=== PATIENT | male | born 1950 | race Caucasian/White ===

== ENCOUNTER 2018-08-10 10:05 | Observation (INO) | payer MEDICARE ==
[2018-08-09 10:14] LABS: BASOPHILS % (AUTO) 0.3 % (0-1); EOSINOPHILS # (AUTO) 0.2 X10'3 (0-0.9); EOSINOPHILS % (AUTO) 3.1 % (0-6); HEMATOCRIT 33.5 % (42.0-52.0); HEMOGLOBIN 11.1 g/dl (14.0-17.9); LYMPHOCYTES # (AUTO) 1.3 X10'3 (1.1-4.8); LYMPHOCYTES % (AUTO) 20.4 % (21-51); MEAN CORPUSCULAR HEMOGLOBIN 27.3 PG (27.0-31.0); MEAN CORPUSCULAR HGB CONC 33.3 % (33.0-36.5); MEAN PLATELET VOLUME 8.6 FL (7.4-10.4); MONOCYTES # (AUTO) 0.5 X10'3 (0-0.9); MONOCYTES % (AUTO) 7.4 % (2-12); NEUTROPHILS # (AUTO) 4.2 X10'3 (1.8-7.7); NEUTROPHILS % (AUTO) 68.8 % (42-75); PLATELET COUNT 203 X10'3 (140-440); RED BLOOD COUNT 4.08 X10'6 (4.70-6.10); RED CELL DISTRIBUTION WIDTH 16.4 % (11.5-14.5); WHITE BLOOD COUNT 6.2 X10'3 (4.5-11.0)
[2018-08-09 10:26] LABS: ALBUMIN 3.3 G/DL (3.4-5.0); ANION GAP 10 (8-16); BLOOD UREA NITROGEN 19 MG/DL (7-18); BUN/CREATININE RATIO 17.3 (5.4-32.0); CALCIUM 8.9 MG/DL (8.5-10.1); CHLORIDE 108 MMOL/L (99-107); GLUCOSE 87 MG/DL (70-104); POTASSIUM 3.8 MMOL/L (3.5-5.1); SODIUM 143 MMOL/L (135-145); TOTAL CARBON DIOXIDE 24.8 MMOL/L (24-32); eGFR 67 ML/MIN
[2018-08-09 10:37] LABS: INR 1.1 INR; PARTIAL THROMBOPLASTIN TIME 27 SECONDS (22-32); PROTHROMBIN TIME 11.4 SECONDS (9.0-12.0)
[2018-08-10] VITALS (13 sets, daily range): BP systolic 143–174; BP diastolic 68–94
[~2018-08-10] VITALS: Ht 152.4 cm; Wt 130.8 kg
[~2018-08-10 10:05] MED LIST: AMLO2.5T2 PO; ASPI-1264 PO; BISO5TAB PO; CALC600T12 PO; FOLI0.4T2 PO; GLIM1TAB46 PO; HYDR25TA4 PO; LISI40TA4 PO; LOSA50TA3 PO; METF500T7 PO; OMEG-182 PO; PIOG15TA8 PO; SIMV20TA5 PO; TERA2CAP4 PO; TRAM50TA2 PO; VITA400C21 PO
[2018-08-10] MEDS ORDERED: diphenhydrAMINE 25mg capsule PO PRN (10:35)
[2018-08-10] MEDS ORDERED: LORazepam 0.5 MG tablet PO PRN (10:35)
[2018-08-10] MEDS ORDERED: ATOR80TA PO (11:10)
[2018-08-10] MEDS ORDERED: AMLO2.5T2 PO (11:10)
[2018-08-10] MEDS ORDERED: ASPI-1265 PO (11:10)
[2018-08-10] MEDS ORDERED: GLUC-150 PO (11:10)
[2018-08-10] MEDS ORDERED: ASCO500C15 PO (11:10)
[2018-08-10] MEDS ORDERED: CLOP75TA35 PO (11:10)
[2018-08-10] MEDS: normal saline 1000ml 1,000 ML IV SCH ×2 (11:43→20:35)
[2018-08-10] MEDS ORDERED: LIDOcaine 1% 30ml preserv. free vial ONE (12:58)
[2018-08-10] MEDS ORDERED: iohexol 350MG/ML 100ml bottle IV ONE ×3 (12:58→14:14)
[2018-08-10] MEDS ORDERED: midazolam 2 mg/2 ml injection ONE (13:26)
[2018-08-10] MEDS ORDERED: fentaNYL/PF 50MCG/1 ML 2ML syringe ONE (13:26)
[2018-08-10] MEDS ORDERED: heparin 1,000unit/ml 10ml vial 10 ML ONE ×2 (13:49→14:23)
[2018-08-10] MEDS ORDERED: clopidogrel 300mg tablet ONE (14:33)
[2018-08-10] MEDS ORDERED: morphine 2 MG/ML inj. syringe IV PRN ×2 (15:20→15:50)
[2018-08-10] MEDS ORDERED: proCHLORperazine 10 MG/2 ml inj IV PRN (15:40)
[2018-08-10] MEDS ORDERED: HYDROcodone/acetaminophen 5mg/325mg tablet PO PRN (15:40)
[2018-08-10] MEDS ORDERED: OXAZEpam 15mg capsule PO PRN (15:40)
[2018-08-10] MEDS ORDERED: nitroGLYCERIN 0.4mg SUBLingual tab SL PRN (15:40)
[2018-08-10] MEDS ORDERED: HYDROcodone/acetaminophen 10/325mg tab PO PRN (15:40)
[2018-08-10] MEDS ORDERED: ondansetron/PF 4mg/2ml inj IV PRN (15:40)
[2018-08-10] MEDS ORDERED: atorvastatin 20mg tablet PO SCH (21:00)
[2018-08-10] MEDS ORDERED: terazosin 5mg capsule PO SCH (21:00)
[2018-08-11 06:00] VITALS: BP 160/65
[2018-08-11] MEDS ORDERED: METF500T7 PO (06:18)
[2018-08-11] MEDS: normal saline 1000ml 1,000 ML IV SCH (06:35)
[2018-08-11] MEDS ORDERED: FISH OIL PO SCH (08:00)
[2018-08-11] MEDS ORDERED: amLODIPine 5mg tablet PO SCH (08:00)
[2018-08-11] MEDS ORDERED: losartan 50mg tablet PO SCH (08:00)
[2018-08-11] MEDS ORDERED: glimepiride 1 MG tablet PO SCH (08:00)
[2018-08-11] MEDS ORDERED: OMEGA PO SCH (08:00)
[2018-08-11] MEDS ORDERED: pioglitazone 15mg tablet PO SCH (08:00)
[2018-08-11] MEDS ORDERED: aspirin 81mg tab.chew PO SCH (08:00)
[2018-08-11] MEDS ORDERED: ascorbic acid 500mg tablet PO SCH (08:00)
[2018-08-11] MEDS ORDERED: BOSWELLIA SERRA PO SCH (08:00)
[2018-08-11] MEDS ORDERED: atenolol 50mg tablet PO SCH (08:00)
[2018-08-11] MEDS ORDERED: vitamin E 400 unit capsule PO SCH (08:00)
[2018-08-11] MEDS ORDERED: calcium carbonate 500mg tablet PO SCH (08:00)
[2018-08-11] MEDS ORDERED: EPA PO SCH (08:00)
[2018-08-11] MEDS ORDERED: clopidogrel 75mg tablet PO SCH (08:00)
[2018-08-11] MEDS ORDERED: DHA PO SCH (08:00)
[2018-08-11] MEDS ORDERED: GLUCOSAMINE PO SCH (08:00)
[2018-08-11] MEDS ORDERED: folic acid 0.4mg tablet PO SCH (08:00)
[2018-08-11] MEDS ORDERED: D3 PO SCH (08:00)
[2018-08-11] MEDS ORDERED: pioglitazone 45mg tablet PO SCH (09:42)
[2018-08-12] MEDS ORDERED: metFORMIN 500mg tablet PO SCH (20:00)
== END 2018-08-11 11:25 | disposition home or self-care (01) ==
LOC: SSTAY O 10:05 → PCU 3S 18:27
PROVIDERS: ADMIT Internal Medicine Interventional Cardiology; ATTEND Internal Medicine Interventional Cardiology
DX: I25.708 Atherosclerosis of coronary artery bypass graft(s), unspecified, with other forms of angina pectoris (principal); E11.9 Type 2 diabetes mellitus without complications; E78.5 Hyperlipidemia, unspecified; I25.2 Old myocardial infarction; I10 Essential (primary) hypertension; I45.19 Other right bundle-branch block; I35.0 Nonrheumatic aortic (valve) stenosis; I21.4 Non-ST elevation (NSTEMI) myocardial infarction; G47.10 Hypersomnia, unspecified; R94.31 Abnormal electrocardiogram [ECG] [EKG]; E66.09 Other obesity due to excess calories; Z79.84 Long term (current) use of oral hypoglycemic drugs; Z79.82 Long term (current) use of aspirin; Z95.1 Presence of aortocoronary bypass graft
CPT/HCPCS: 36415; 80048; 82948; 83036; 85025; 85610; 85730; 87070; 93005; 93455; 96374; 96376; A6257; A6449; C1725; C1760; C1769; C1874; C1887; C9600; C9601; G0378; J1644; J2250; J2270; J3010; J3490; J7030; Q0163; Q9967; 99152; 99153; A4620

== ENCOUNTER 2023-12-09 12:08 | Inpatient (IN) | payer MEDICARE ==
[~2023-12-09] VITALS: Ht 177.8 cm; Wt 90.0 kg
[~2023-12-09 12:08] MED LIST changes: +AMA1T PO; +ASCO500C18 PO; -ASPI-1264 PO; +ASPI-1265 PO; +ATOR80TA PO; -CALC600T12 PO; +CALC600T35 PO; +CLOP75TA34 PO; -FOLI0.4T2 PO; +FOLI0.4T6 PO; +FURO-149 PO; -GLIM1TAB46 PO; +GLUC-150 PO; -HYDR25TA4 PO; -LISI40TA4 PO; +LOSA-416 PO; -LOSA50TA3 PO; +METF-900 PO; -METF500T7 PO; +POTA-207 PO; -SIMV20TA5 PO; -TRAM50TA2 PO
[2023-12-09 12:40] LABS: BASOPHILS % (AUTO) 0.5 % (0-1); EOSINOPHILS # (AUTO) 0.1 X10'3 (0-0.9); HEMOGLOBIN 12.2 g/dl (14.0-17.9); LYMPHOCYTES # (AUTO) 1.9 X10'3 (1.1-4.8); LYMPHOCYTES % (AUTO) 26.2 % (21-51); MEAN CORPUSCULAR HEMOGLOBIN 29.3 PG (27.0-31.0); WHITE BLOOD COUNT 7.2 X10'3 (4.5-11.0)
[2023-12-09 12:42] LABS: EOSINOPHILS % (AUTO) 1.2 % (0-6); HEMATOCRIT 36.7 % (42.0-52.0); MEAN CORPUSCULAR HGB CONC 33.2 g/dL (33.0-36.5); MEAN CORPUSCULAR VOLUME 88.1 FL (78-98); MONOCYTES # (AUTO) 0.4 X10'3 (0-0.9); MONOCYTES % (AUTO) 5.8 % (2-12); NEUTROPHILS # (AUTO) 4.8 X10'3 (1.8-7.7); NEUTROPHILS % (AUTO) 66.3 % (42-75); PLATELET COUNT 183 X10'3 (140-440); RED BLOOD COUNT 4.17 X10'6 (4.70-6.10)
[2023-12-09 12:51] LABS: ALKALINE PHOSPHATASE 67 IU/L (46-116); ANION GAP 10 (8-16); ASPARTATE AMINO TRANSFERASE 12 U/L (10-37); BILIRUBIN,TOTAL 0.7 MG/DL (0.1-1.0); BLOOD UREA NITROGEN 17 MG/DL (7-18); BUN/CREATININE RATIO 17.7 (10.0-20.0); CALCIUM 8.5 MG/DL (8.5-10.1); CHLORIDE 106 MMOL/L (99-107); CREATININE 0.96 MG/DL (0.60-1.10); GLUCOSE 249 MG/DL (70-104); POTASSIUM 3.3 MMOL/L (3.5-5.1); SODIUM 143 MMOL/L (135-145); TOTAL CARBON DIOXIDE 27.4 MMOL/L (24-32); TOTAL PROTEIN 5.9 G/DL (6.4-8.2); eGFR 77 ML/MIN
[2023-12-09 12:54] LABS: ALANINE AMINOTRANSFERASE < 6 U/L (12-78)
[2023-12-09 13:02] LABS: PRO BRAIN NATRIURETIC PEPTIDE 2050 PG/ML (0-125)
[2023-12-09 13:48] LABS: BURR CELLS FEW; PLATELET ESTIMATE NORMAL
[2023-12-09 13:49] LABS: ELLIPTOCYTES 1+
[2023-12-09] MEDS ORDERED: aspirin 81mg tab.chew PO ONE (17:45)
[2023-12-09] MEDS ORDERED: nitroGLYCERIN 0.4mg/hour patch TD ONE (17:45)
[2023-12-09] MEDS ORDERED: mag hydrox/Alum hydrox/simeth 30ml oral suspension PO PRN (18:00)
[2023-12-09] MEDS ORDERED: magnesium hydroxide 30ml (MOM) UD suspension PO PRN (18:00)
[2023-12-09] MEDS ORDERED: magnesium 4gm in 100ml NS 100 ML IV PRN (18:00)
[2023-12-09] MEDS ORDERED: potassium Cl 20 mEq SR tablet PO PRN (18:00)
[2023-12-09] MEDS ORDERED: morphine 2 MG/ML inj. syringe IV PRN (18:00)
[2023-12-09] MEDS ORDERED: ondansetron/PF 4mg/2ml inj IV PRN (18:00)
[2023-12-09] MEDS ORDERED: potassium Cl 40MEQ/1/2NS 520ml 520 ML IV PRN (18:00)
[2023-12-09] MEDS ORDERED: HYDROcodone/acetaminophen 5mg/325mg tablet PO PRN (18:00)
[2023-12-09] MEDS ORDERED: acetaminophen 325mg tablet PO PRN (18:00)
[2023-12-09] MEDS ORDERED: magnesium Cl slow-release 64mg tablet PO PRN (18:00)
[2023-12-09] MEDS ORDERED: HYDROcodone/acetaminophen 10/325mg tab PO PRN (18:00)
[2023-12-09] MEDS ORDERED: magnesium 2GM in 50ml NS 50 ML IV PRN (18:00)
[2023-12-09 18:59] LABS: APTT 29 SECONDS (22-32); INR 1.2 INR; PROTHROMBIN TIME 12.3 SECONDS (9.0-12.0)
[2023-12-09] MEDS: docusate sod 100mg capsule PO SCH (19:34)
[2023-12-09] MEDS ORDERED: hydrALAZINE 20mg/ml inj. IV PRN (19:45)
[2023-12-09] MEDS: K and/or MAG REPLACEMENT MC SCH (20:00)
[2023-12-09] MEDS: potassium Cl 20 mEq SR tablet PO PRN (20:28)
[2023-12-09 23:30] VITALS: BP 136/58; PULSE 69; RESP 12; TEMP 98.3; O2SAT 98
[2023-12-10] VITALS (7 sets, daily range): BP systolic 150–178; BP diastolic 43–83; PULSE 56–67; RESP 13–19; TEMP 96.9–98.6; O2SAT 94–98
[2023-12-10] MEDS: potassium Cl 20 mEq SR tablet PO PRN (02:51)
[2023-12-10] MEDS: docusate sod 100mg capsule PO SCH ×3 (08:00→20:00)
[2023-12-10] MEDS: K and/or MAG REPLACEMENT MC SCH ×2 (08:00→19:45)
[2023-12-10] MEDS: enoxaparin 40mg/0.4ml syringe SUBCUT SCH (08:00)
[2023-12-10 08:44] LABS: BASOPHILS % (AUTO) 0.5 % (0-1); EOSINOPHILS # (AUTO) 0.1 X10'3 (0-0.9); EOSINOPHILS % (AUTO) 1.7 % (0-6); HEMATOCRIT 34.4 % (42.0-52.0); HEMOGLOBIN 11.9 g/dl (14.0-17.9); LYMPHOCYTES # (AUTO) 2.6 X10'3 (1.1-4.8); LYMPHOCYTES % (AUTO) 31.5 % (21-51); MEAN CORPUSCULAR HGB CONC 34.5 g/dL (33.0-36.5); MEAN PLATELET VOLUME 9.3 FL (7.4-10.4); MONOCYTES # (AUTO) 0.7 X10'3 (0-0.9); MONOCYTES % (AUTO) 8.9 % (2-12); NEUTROPHILS # (AUTO) 4.8 X10'3 (1.8-7.7); NEUTROPHILS % (AUTO) 57.4 % (42-75); PLATELET COUNT 174 X10'3 (140-440); RED BLOOD COUNT 3.96 X10'6 (4.70-6.10); RED CELL DISTRIBUTION WIDTH 14.4 % (11.5-14.5); WHITE BLOOD COUNT 8.4 X10'3 (4.5-11.0)
[2023-12-10] MEDS ORDERED: HYDR12.55 PO (09:02)
[2023-12-10] MEDS ORDERED: CARB1TAB37 PO (09:02)
[2023-12-10] MEDS ORDERED: FINA5TAB11 PO (09:02)
[2023-12-10] MEDS ORDERED: CARV25TA56 PO (09:02)
[2023-12-10] MEDS ORDERED: VALS320T17 PO (09:02)
[2023-12-10] MEDS ORDERED: DONE-55 PO (09:05)
[2023-12-10] MEDS ORDERED: ERGO400C PO (09:05)
[2023-12-10 09:06] LABS: ALANINE AMINOTRANSFERASE 10 U/L (12-78); ALBUMIN 2.7 G/DL (3.4-5.0); ALKALINE PHOSPHATASE 55 IU/L (46-116); ANION GAP 6 (8-16); ASPARTATE AMINO TRANSFERASE 12 U/L (10-37); BILIRUBIN,TOTAL 0.7 MG/DL (0.1-1.0); BLOOD UREA NITROGEN 15 MG/DL (7-18); BUN/CREATININE RATIO 20.3 (10.0-20.0); CALCIUM 7.9 MG/DL (8.5-10.1); CHLORIDE 109 MMOL/L (99-107); CREATININE 0.74 MG/DL (0.60-1.10); GLUCOSE 103 MG/DL (70-104); MAGNESIUM 2.1 MG/DL (1.5-2.4); POTASSIUM 3.5 MMOL/L (3.5-5.1); SODIUM 143 MMOL/L (135-145); TOTAL CARBON DIOXIDE 27.7 MMOL/L (24-32); TOTAL PROTEIN 5.4 G/DL (6.4-8.2); eCRCL 95 ML/MIN; eGFR > 90 ML/MIN
[2023-12-10 10:18] LABS: SMUDGE CELLS 1+; TOTAL CELLS COUNTED 100
[2023-12-10 10:19] LABS: ACANTHOCYTES FEW; BURR CELLS FEW; ELLIPTOCYTES FEW; PLATELET ESTIMATE NORMAL
[2023-12-10] MEDS: losartan 50mg tablet PO SCH (15:45)
[2023-12-10] MEDS: aspirin 81mg tab.chew PO SCH (15:46)
[2023-12-10] MEDS: METFORMIN HCL 500 MG PO SCH (20:00)
[2023-12-10] MEDS: carbidoba-levodopa 25-100mg tablet PO SCH (20:51)
[2023-12-10] MEDS: carVEDilol 12.5mg tablet PO SCH (20:51)
[2023-12-10] MEDS ORDERED: ERGOCALCIFEROL PO SCH (21:00)
[2023-12-10] MEDS ORDERED: donepezil 5mg tablet PO SCH (21:00)
[2023-12-10] MEDS ORDERED: atorvastatin 10mg tablet PO SCH (21:00)
[2023-12-10] MEDS ORDERED: terazosin 5mg capsule PO SCH (21:00)
[2023-12-11 02:00] VITALS: BP_SYST 111; BP_SYST 154; BP_DIAS 65; BP_DIAS 67; PULSE 56; RESP 16; TEMP 97.8; O2SAT 96
[2023-12-11 06:00] VITALS: BP 159/79; PULSE 54; RESP 16; TEMP 98.2; O2SAT 96
[2023-12-11 06:56] LABS: BASOPHILS % (AUTO) 0.7 % (0-1); EOSINOPHILS # (AUTO) 0.2 X10'3 (0-0.9); EOSINOPHILS % (AUTO) 2.3 % (0-6); HEMATOCRIT 33.9 % (42.0-52.0); HEMOGLOBIN 11.7 g/dl (14.0-17.9); LYMPHOCYTES # (AUTO) 2.3 X10'3 (1.1-4.8); LYMPHOCYTES % (AUTO) 33.5 % (21-51); MEAN CORPUSCULAR HEMOGLOBIN 29.8 PG (27.0-31.0); MEAN CORPUSCULAR HGB CONC 34.4 g/dL (33.0-36.5); MEAN CORPUSCULAR VOLUME 86.4 FL (78-98); MEAN PLATELET VOLUME 8.6 FL (7.4-10.4); MONOCYTES # (AUTO) 0.5 X10'3 (0-0.9); MONOCYTES % (AUTO) 7.4 % (2-12); NEUTROPHILS # (AUTO) 3.8 X10'3 (1.8-7.7); NEUTROPHILS % (AUTO) 56.1 % (42-75); PLATELET COUNT 156 X10'3 (140-440); RED BLOOD COUNT 3.92 X10'6 (4.70-6.10); RED CELL DISTRIBUTION WIDTH 14.4 % (11.5-14.5); WHITE BLOOD COUNT 6.8 X10'3 (4.5-11.0)
[2023-12-11 07:15] LABS: ALBUMIN 2.6 G/DL (3.4-5.0); ALKALINE PHOSPHATASE 53 IU/L (46-116); ANION GAP 6 (8-16); ASPARTATE AMINO TRANSFERASE 14 U/L (10-37); BILIRUBIN,TOTAL 0.9 MG/DL (0.1-1.0); BLOOD UREA NITROGEN 17 MG/DL (7-18); BUN/CREATININE RATIO 20.5 (10.0-20.0); CALCIUM 8.3 MG/DL (8.5-10.1); CHLORIDE 108 MMOL/L (99-107); CREATININE 0.83 MG/DL (0.60-1.10); GLUCOSE 100 MG/DL (70-104); POTASSIUM 3.3 MMOL/L (3.5-5.1); SODIUM 143 MMOL/L (135-145); TOTAL CARBON DIOXIDE 28.8 MMOL/L (24-32); TOTAL PROTEIN 5.2 G/DL (6.4-8.2); eCRCL 84 ML/MIN; eGFR > 90 ML/MIN
[2023-12-11 07:24] LABS: ALANINE AMINOTRANSFERASE < 6 U/L (12-78)
[2023-12-11 08:00] VITALS: RESP 16; O2SAT 96
[2023-12-11] MEDS ORDERED: losartan 50mg tablet PO SCH (08:00)
[2023-12-11] MEDS ORDERED: D3 PO SCH (08:00)
[2023-12-11] MEDS ORDERED: folic acid 0.4mg tablet PO SCH (08:00)
[2023-12-11] MEDS ORDERED: OMEGA-3/DHA/EPA/FISH OIL 1 EACH CAPSULE.DR PO SCH (08:00)
[2023-12-11] MEDS: enoxaparin 40mg/0.4ml syringe SUBCUT SCH (08:00)
[2023-12-11] MEDS ORDERED: HYDROchlorothiazide 12.5mg capsule PO SCH (08:00)
[2023-12-11] MEDS ORDERED: ascorbic acid 500mg tablet PO SCH (08:00)
[2023-12-11] MEDS ORDERED: BOSWELLIA SERRA PO SCH (08:00)
[2023-12-11] MEDS ORDERED: vitamin E 400 unit capsule PO SCH (08:00)
[2023-12-11] MEDS: METFORMIN HCL 500 MG PO SCH (08:00)
[2023-12-11] MEDS ORDERED: GLUCOSAMINE PO SCH (08:00)
[2023-12-11] MEDS ORDERED: finasteride 5mg tablet PO SCH (08:00)
[2023-12-11] MEDS: aspirin 81mg tab.chew PO SCH (08:02)
[2023-12-11] MEDS: docusate sod 100mg capsule PO SCH (08:02)
[2023-12-11] MEDS: losartan 50mg tablet PO SCH (08:04)
[2023-12-11] MEDS: potassium Cl 20 mEq SR tablet PO PRN (08:06)
[2023-12-11] MEDS: K and/or MAG REPLACEMENT MC SCH (08:09)
[2023-12-11 09:52] VITALS: BP 168/78; PULSE 63
[2023-12-11] MEDS: carVEDilol 12.5mg tablet PO SCH (10:13)
[2023-12-11] MEDS: carbidoba-levodopa 25-100mg tablet PO SCH (10:27)
[2023-12-11] MEDS ORDERED: POTA-207 PO (11:32)
== END 2023-12-11 12:49 | disposition home or self-care (01) | DRG 307 ==
LOC: ER 12:09 → ED HOLD 18:01 → PCU 3S 23:25
PROVIDERS: ADMIT Internal Medicine; ATTEND Internal Medicine
DX: I35.0 Nonrheumatic aortic (valve) stenosis (principal); I25.110 Atherosclerotic heart disease of native coronary artery with unstable angina pectoris; R00.1 Bradycardia, unspecified; G31.83 Neurocognitive disorder with Lewy bodies; G20.A1 Parkinson's disease without dyskinesia, without mention of fluctuations; F02.80 Dementia in other diseases classified elsewhere, unspecified severity, without behavioral disturbance, psychotic disturbance, mood disturbance, and anxiety; I10 Essential (primary) hypertension; E11.9 Type 2 diabetes mellitus without complications; E78.00 Pure hypercholesterolemia, unspecified; E66.01 Morbid (severe) obesity due to excess calories; G89.29 Other chronic pain; E87.6 Hypokalemia; N40.0 Benign prostatic hyperplasia without lower urinary tract symptoms; Z95.5 Presence of coronary angioplasty implant and graft; Z95.1 Presence of aortocoronary bypass graft; Z79.899 Other long term (current) drug therapy; I25.2 Old myocardial infarction; Z85.820 Personal history of malignant melanoma of skin; Z83.3 Family history of diabetes mellitus; Z82.49 Family history of ischemic heart disease and other diseases of the circulatory system; Z68.28 Body mass index [BMI] 28.0-28.9, adult; Z79.82 Long term (current) use of aspirin
CPT/HCPCS: 36415; 71045; 80053; 82948; 83735; 83880; 84484; 85007; 85008; 85025; 85610; 85730; 87081; 93005; 93306; 99285; G0378

== ENCOUNTER 2024-01-05 10:52 | Day surgery (SDC) | payer MEDICARE ==
[2024-01-01 09:18] LABS: EOSINOPHILS # (AUTO) 0.2 X10'3 (0-0.9); HEMOGLOBIN 13.7 g/dl (14.0-17.9); LYMPHOCYTES % (AUTO) 38.1 % (21-51); MONOCYTES # (AUTO) 0.4 X10'3 (0-0.9)
[2024-01-01 09:20] LABS: BASOPHILS % (AUTO) 0.4 % (0-1); HEMATOCRIT 41.2 % (42.0-52.0); MEAN CORPUSCULAR HEMOGLOBIN 29.3 PG (27.0-31.0); MEAN CORPUSCULAR HGB CONC 33.3 g/dL (33.0-36.5); MEAN CORPUSCULAR VOLUME 87.9 FL (78-98); MEAN PLATELET VOLUME 8.6 FL (7.4-10.4); NEUTROPHILS # (AUTO) 4.3 X10'3 (1.8-7.7); NEUTROPHILS % (AUTO) 54.5 % (42-75); PLATELET COUNT 208 X10'3 (140-440); RED BLOOD COUNT 4.68 X10'6 (4.70-6.10); RED CELL DISTRIBUTION WIDTH 15.1 % (11.5-14.5)
[2024-01-01 10:11] LABS: ALBUMIN 3.4 G/DL (3.4-5.0); ANION GAP 9 (8-16); BLOOD UREA NITROGEN 17 MG/DL (7-18); BUN/CREATININE RATIO 21.3 (10.0-20.0); CALCIUM 9.1 MG/DL (8.5-10.1); CHLORIDE 110 MMOL/L (99-107); CHOL/HDL RATIO 2.5 (0.00-4.99); CHOLESTEROL 125 MG/DL (0-200); GLUCOSE 130 MG/DL (70-104); HDL CHOLESTEROL 50 MG/DL (35-60); LDL CHOLESTEROL 60 MG/DL (50-100); POTASSIUM 3.8 MMOL/L (3.5-5.1); SODIUM 146 MMOL/L (135-145); TRIGLYCERIDES 57 MG/DL (20-135); eGFR > 90 ML/MIN
[2024-01-01 10:12] LABS: APTT 25 SECONDS (22-32); INR 1.1 INR; PROTHROMBIN TIME 11.9 SECONDS (9.0-12.0)
[~2024-01-05] VITALS: Ht 177.8 cm; Wt 89.3 kg
[2024-01-05] VITALS (8 sets, daily range): BP systolic 121–140; BP diastolic 48–75; PULSE 51–65; RESP 16; TEMP 97.6; O2SAT 93–98
[~2024-01-05 10:52] MED LIST changes: -AMLO2.5T2 PO; -BISO5TAB PO; +CARB1TAB37 PO; +CARV25TA56 PO; -CLOP75TA34 PO; +DONE-55 PO; +ERGO400C PO; +FINA5TAB11 PO; -FURO-149 PO; +HYDR12.55 PO; -LOSA-416 PO; +VALS320T17 PO
[2024-01-05] MEDS ORDERED: LIDOcaine 1% (10mg/ml) 2ml vial ONE (11:38)
[2024-01-05] MEDS ORDERED: verapamil 2.5 mg/ml inj IV ONE (11:38)
[2024-01-05] MEDS ORDERED: midazolam 1 mg/ML 2ml injection ONE (11:39)
[2024-01-05] MEDS ORDERED: iohexol 350MG/ML 100ml bottle IV ONE (11:39)
[2024-01-05] MEDS ORDERED: heparin 1,000unit/ml 10ml vial 10 ML ONE (11:39)
[2024-01-05] MEDS ORDERED: fentaNYL/PF 50MCG/1 ML 2ML syringe ONE (11:39)
[2024-01-05] MEDS ORDERED: nitroGLYCERIN 500mcg/5mL D5W 5 ML IV ONE (11:40)
[2024-01-05] MEDS ORDERED: NIFE90TA70 PO (11:49)
[2024-01-05] MEDS ORDERED: NITR0.4T51 (11:49)
[2024-01-05] MEDS ORDERED: MELA5CAP PO (11:49)
[2024-01-05] MEDS: LORazepam 0.5 MG tablet PO PRN (12:18)
[2024-01-05] MEDS: normal saline 1,000 ML IV SCH (12:18)
[2024-01-05] MEDS: diphenhydrAMINE 25mg capsule PO PRN (12:18)
[2024-01-05] MEDS ORDERED: LIDOcaine 1% 30ml preserv. free vial ONE (13:24)
[2024-01-05] MEDS ORDERED: iohexol 350 MG/ML 50ML vial IV ONE (13:46)
[2024-01-05 13:56] LABS: ISTAT HGB ART 11.6 g/dl (14.0-17.9); ISTAT Hct ART 34 %PCV (42-52); ISTAT O2 SATURATION ARTERIAL 90 % (95-98); ISTAT SOURCE ART
[2024-01-05] MEDS ORDERED: HYDROcodone/acetaminophen 10/325mg tab PO PRN (14:45)
[2024-01-05] MEDS ORDERED: HYDROcodone/acetaminophen 5mg/325mg tablet PO PRN (14:45)
[2024-01-06 06:26] LABS: ISTAT HGB MIX 11.2 g/dl (14.0-17.9); ISTAT Hct MIX 33 %PCV (42-52); ISTAT O2 SATURATION MIX VENOUS 67 % (60-80); ISTAT SOURCE VEN
== END 2024-01-05 16:16 | disposition home or self-care (01) ==
LOC: SSTAY O 10:52
PROVIDERS: ATTEND Student in an Organized Health Care Education/Training Program
DX: I35.0 Nonrheumatic aortic (valve) stenosis (principal); I45.2 Bifascicular block; I11.0 Hypertensive heart disease with heart failure; I50.9 Heart failure, unspecified; E11.9 Type 2 diabetes mellitus without complications; I25.10 Atherosclerotic heart disease of native coronary artery without angina pectoris; E78.00 Pure hypercholesterolemia, unspecified; Z85.820 Personal history of malignant melanoma of skin; Z79.82 Long term (current) use of aspirin; Z79.84 Long term (current) use of oral hypoglycemic drugs; Z79.899 Other long term (current) drug therapy; Z95.1 Presence of aortocoronary bypass graft
CPT/HCPCS: 80048; 80061; 82803; 85014; 85025; 85610; 85730; 93005; 93457; 99152; 99153; J1644; J2250; J3010; J3490; J7030; Q0163; Q9967; A6258; C1751; C1760; C1894

== ENCOUNTER 2024-01-28 10:23 | Outpatient (CLI) | payer MEDICARE ==
[~2024-01-28 10:23] MED LIST changes: -FINA5TAB11 PO; -FOLI0.4T6 PO; -GLUC-150 PO; +IODIXANOL 320 MG/ML INFUS..BTL 100ML IV ONE; +MELA5CAP PO; +NIFE90TA70 PO; +NITR0.4T51; -PIOG15TA8 PO; -TERA2CAP4 PO
[2024-01-28 10:57] LABS: BASOPHILS # (AUTO) 0.1 X10'3 (0-0.2); EOSINOPHILS # (AUTO) 0.1 X10'3 (0-0.9); MEAN CORPUSCULAR HEMOGLOBIN 29.3 PG (27.0-31.0); MONOCYTES # (AUTO) 0.7 X10'3 (0-0.9); NEUTROPHILS # (AUTO) 6.7 X10'3 (1.8-7.7); RED BLOOD COUNT 4.78 X10'6 (4.70-6.10)
[2024-01-28 10:58] LABS: BASOPHILS % (AUTO) 0.5 % (0-1); EOSINOPHILS % (AUTO) 0.7 % (0-6); HEMATOCRIT 41.6 % (42.0-52.0); LYMPHOCYTES # (AUTO) 2.5 X10'3 (1.1-4.8); MEAN CORPUSCULAR HGB CONC 33.7 g/dL (33.0-36.5); MEAN PLATELET VOLUME 8.4 FL (7.4-10.4); MONOCYTES % (AUTO) 6.9 % (2-12); NEUTROPHILS % (AUTO) 66.9 % (42-75); PLATELET COUNT 223 X10'3 (140-440); WHITE BLOOD COUNT 10.1 X10'3 (4.5-11.0)
[2024-01-28 11:11] LABS: PLATELET ESTIMATE NORMAL
[2024-01-28 11:12] LABS: ACANTHOCYTES FEW; BURR CELLS FEW; ELLIPTOCYTES FEW
[2024-01-28 11:18] LABS: INR 1.1 INR; PROTHROMBIN TIME 11.8 SECONDS (9.0-12.0)
[2024-01-28 11:21] LABS: ALANINE AMINOTRANSFERASE 9 U/L (12-78); ALBUMIN 3.6 G/DL (3.4-5.0); ALKALINE PHOSPHATASE 72 IU/L (46-116); ANION GAP 7 (8-16); ASPARTATE AMINO TRANSFERASE 13 U/L (10-37); BILIRUBIN,TOTAL 0.7 MG/DL (0.1-1.0); BLOOD UREA NITROGEN 18 MG/DL (7-18); BUN/CREATININE RATIO 18.9 (10.0-20.0); CALCIUM 9.1 MG/DL (8.5-10.1); CHLORIDE 109 MMOL/L (99-107); CREATININE 0.95 MG/DL (0.60-1.10); GLUCOSE 149 MG/DL (70-104); POTASSIUM 3.9 MMOL/L (3.5-5.1); SODIUM 146 MMOL/L (135-145); TOTAL CARBON DIOXIDE 29.8 MMOL/L (24-32); TOTAL PROTEIN 7.1 G/DL (6.4-8.2); eGFR 78 ML/MIN
[2024-01-28 11:29] LABS: APTT 26 SECONDS (22-32)
== END 2024-01-28 23:59 | disposition home or self-care (01) ==
LOC: RAD 10:23
PROVIDERS: ATTEND Internal Medicine Cardiovascular Disease
DX: K86.89 Other specified diseases of pancreas (principal); I35.0 Nonrheumatic aortic (valve) stenosis; R06.02 Shortness of breath; I65.29 Occlusion and stenosis of unspecified carotid artery; I77.89 Other specified disorders of arteries and arterioles; K80.20 Calculus of gallbladder without cholecystitis without obstruction; M41.86 Other forms of scoliosis, lumbar region; M47.816 Spondylosis without myelopathy or radiculopathy, lumbar region
CPT/HCPCS: 36415; 71046; 71275; 74174; 75572; 80053; 85008; 85025; 85610; 85730; J3490; Q9967

== ENCOUNTER 2024-03-24 05:33 | Inpatient (IN) | payer MEDICARE ==
[2024-03-16 11:13] LABS: EOSINOPHILS # (AUTO) 0.1 X10'3 (0-0.9); LYMPHOCYTES # (AUTO) 2.2 X10'3 (1.1-4.8); PRE OP HEMOGLOBIN 13.6 g/dL (14.0-17.9)
[2024-03-16 11:15] LABS: BASOPHILS # (AUTO) 0.1 X10'3 (0-0.2); BASOPHILS % (AUTO) 0.5 % (0-1); MEAN CORPUSCULAR HEMOGLOBIN 30.3 PG (27.0-31.0); MEAN CORPUSCULAR HGB CONC 34.5 g/dL (33.0-36.5); MEAN CORPUSCULAR VOLUME 87.7 FL (78-98); MEAN PLATELET VOLUME 8.3 FL (7.4-10.4); MONOCYTES # (AUTO) 0.5 X10'3 (0-0.9); MONOCYTES % (AUTO) 5.5 % (2-12); NEUTROPHILS # (AUTO) 6.8 X10'3 (1.8-7.7); PRE OP HEMATOCRIT 39.5 % (42.0-52.0); PRE OP PLATELET COUNT 209 X10'3 (140-440); PRE OP WHITE BLOOD COUNT 9.8 10'3 (4.8-10.8); RED CELL DISTRIBUTION WIDTH 15.3 % (11.5-14.5)
[2024-03-16 11:20] LABS: BILIRUBIN,URINE NEGATIVE (Neg); CLARITY,URINE CLEAR (Clear); COLOR,URINE YELLOW (Yellow); GLUCOSE, URINE NEGATIVE (Neg); KETONES,URINE TRACE mg/dl (Neg); LEUKOCYTE ESTERASE ,URINE NEGATIVE (Neg); NITRITES, URINE NEGATIVE (Neg); OCCULT BLOOD,URINE NEGATIVE (Neg); PROTEIN,URINE NEGATIVE (Neg); UROBILINOGEN,URINE 0.2 E.U/dL (0.2-1.0)
[2024-03-16 11:25] LABS: PRE OP INR 1.1 INR; PRE OP PROTIME 11.7 SECONDS (9.0-12.0)
[2024-03-16 11:25] LABS: UA COLLECTION TYPE CLN CATCH MIDSTREAM
[2024-03-16 11:33] LABS: ALBUMIN 3.2 G/DL (3.4-5.0); ALBUMIN/GLOBULIN RATIO 0.9 (1.1-1.5); ALKALINE PHOSPHATASE 72 IU/L (46-116); BLOOD UREA NITROGEN 24 MG/DL (7-18); CHLORIDE 107 MMOL/L (99-107); CREATININE 0.89 MG/DL (0.60-1.10); PRE OP ALT 6 U/L (30-65); PRE OP ANION GAP 7 (8-16); PRE OP AST 9 U/L (10-37); PRE OP BILIRUB, TOTAL 0.7 MG/DL (0.0-1.0); PRE OP GLUCOSE 150 MG/DL (70-104); PRE OP POTASSIUM 3.4 MMOL/L (3.4-5.1); PRE OP SODIUM 143 MMOL/L (135-145); PRO BRAIN NATRIURETIC PEPTIDE 1584 PG/ML (0-125); TOTAL CARBON DIOXIDE 29.4 MMOL/L (24-32); TOTAL PROTEIN 6.6 G/DL (6.4-8.2); eGFR 84 ML/MIN
[2024-03-16 12:01] LABS: HEMOGLOBIN A1C 5.9 % (4.5-6.2)
[2024-03-24] VITALS (29 sets, daily range): BP systolic 125–189; BP diastolic 65–85; PULSE 58–96; RESP 12–18; TEMP 97.3–98.8; O2SAT 92–100
[~2024-03-24] VITALS: Ht 177.8 cm; Wt 97.3 kg
[2024-03-24] MEDS: ringers solution, lacted 1,000 ML IV SCH ×2 (05:30→11:38)
[~2024-03-24 05:33] MED LIST changes: +CALC-1215 PO; -CALC600T35 PO; +CHOL200080 PO; -ERGO400C PO; -IODIXANOL 320 MG/ML INFUS..BTL 100ML IV ONE; -NITR0.4T51; +NITR0.4T51 PO; -POTA-207 PO; +nitroPRUSSIDE (NIPRIDE) (200MCG/ML) 100ML Drip IV SCH; +ondansetron/PF 4mg/2ml inj IV PRN; +phenylephrine inj 50 MG in normal saline 250ml IV solN IV SCH
[2024-03-24] MEDS: cefazolin 2gm/D5W 100mL 100 ML IV ONE (06:02)
[2024-03-24] MEDS: DOCUMENT DATE & TIME OF BETA-BLOCKER PO ONE (06:02)
[2024-03-24] MEDS: vancomycin 1,500 MG in NS 300ml IV soln IV ONE (06:10)
[2024-03-24] MEDS: aspirin 325mg tablet PO ONE (06:11)
[2024-03-24] MEDS: famotidine 20mg tablet PO ONE (06:11)
[2024-03-24] MEDS ORDERED: LIDOcaine 1% 30ml preserv. free vial ONE (06:39)
[2024-03-24] MEDS ORDERED: heparin 1,000 UNITS/NS 500ml 1,500 ML ONE (06:39)
[2024-03-24] MEDS ORDERED: iohexol 350MG/ML 100ml bottle IV ONE (06:44)
[2024-03-24] MEDS ORDERED: nitroGLYCERIN 0.4mg SUBLingual tab SL PRN (06:55)
[2024-03-24] MEDS ORDERED: morphine 4 MG/ML inj SYRINge IV PRN (07:10)
[2024-03-24] MEDS ORDERED: ondansetron/PF 4mg/2ml inj IV PRN ×2 (07:10→08:30)
[2024-03-24] MEDS ORDERED: morphine 2 MG/ML inj. syringe IV PRN (07:10)
[2024-03-24] MEDS ORDERED: midazolam 1 mg/ML 2ml injection ONE (07:16)
[2024-03-24] MEDS ORDERED: fentaNYL/PF 50MCG/1 ML 2ML syringe ONE (07:16)
[2024-03-24] MEDS ORDERED: heparin 1,000unit/ml 10ml vial 10 ML ONE (07:20)
[2024-03-24] MEDS ORDERED: LIDOcaine 2% (20mg/ml) 5ml vial ONE ×2 (07:20)
[2024-03-24] MEDS ORDERED: propofol inj 20 ML IV ONE (07:20)
[2024-03-24] MEDS ORDERED: sevoflurane 250ml liquid IH ONE (07:25)
[2024-03-24] MEDS: protamine sulfate 10mg/ml inj. ONE (07:41)
[2024-03-24] MEDS ORDERED: potassium CL 10mEq/100ml bag 100 ML IV PRN (08:30)
[2024-03-24] MEDS ORDERED: labetalol 20mg/4ml (5mg/ml) syringe IV PRN (08:30)
[2024-03-24] MEDS ORDERED: magnesium 4gm in 100ml NS 100 ML IV PRN (08:30)
[2024-03-24] MEDS ORDERED: docusate sod 100mg capsule PO PRN (08:30)
[2024-03-24] MEDS ORDERED: potassium Cl 40MEQ/270ML bag 250 ML IV PRN (08:30)
[2024-03-24] MEDS ORDERED: pantoprazole 40mg Tablet.DR PO PRN (08:30)
[2024-03-24] MEDS ORDERED: magnesium 2GM in 50ml NS 50 ML IV PRN (08:30)
[2024-03-24] MEDS ORDERED: potassium Cl 40MEQ/1/2NS 520ml 520 ML IV PRN (08:30)
[2024-03-24] MEDS ORDERED: proCHLORperazine 10 MG/2 ml inj IV PRN (08:30)
[2024-03-24] MEDS ORDERED: dextrose 50%-water 50ml dispensing syringe IV PRN ×2 (08:30)
[2024-03-24] MEDS ORDERED: potassium Cl 20 mEq SR tablet PO PRN (08:30)
[2024-03-24] MEDS ORDERED: potassium Cl 20mEq/100mL bag 100 ML IV PRN (08:30)
[2024-03-24] MEDS ORDERED: acetaminophen 325mg tablet PO PRN (08:30)
[2024-03-24] MEDS ORDERED: DEXTROSE 15 GM of carb/4 tabs (each vial/BOTTLE has 4 tablets) PO PRN ×2 (08:30)
[2024-03-24] MEDS ORDERED: glucagon, human recombinant 1mg kit SUBCUT PRN (08:30)
[2024-03-24] MEDS ORDERED: diphenhydrAMINE 25mg capsule PO PRN (08:30)
[2024-03-24] MEDS: labetalol 20mg/4ml (5mg/ml) syringe IV PRN (09:38)
[2024-03-24] MEDS: hydrALAZINE 20mg/ml inj. IV PRN ×2 (09:48→16:23)
[2024-03-24] MEDS: HYDROcodone/acetaminophen 5mg/325mg tablet PO PRN (11:34)
[2024-03-24] MEDS: normal saline 1000ml 1,000 ML IV SCH (11:38)
[2024-03-24] MEDS: insulin Lispro (HumaLOG) vial - multi-dose SQ SCH (12:00)
[2024-03-24] MEDS ORDERED: insulin Lispro (HumaLOG) vial - multi-dose SQ SCH (12:00)
[2024-03-24] MEDS: ceFAZolin 1GM/D5W- ADD-VANTAGE 50 ML IV SCH (15:48)
[2024-03-24] MEDS: sod chloride 0.9% 10ml flush syringe IV SCH (16:14)
[2024-03-24] MEDS: vancomycin/NS 1 GM ADD-VANTAGE 250 ML IV SCH (20:14)
[2024-03-24] MEDS: Melatonin 3mg tablet PO SCH (20:15)
[2024-03-24] MEDS: atorvastatin 20mg tablet PO SCH (20:15)
[2024-03-24] MEDS: carbidoba-levodopa 25-100mg tablet PO SCH (20:15)
[2024-03-24] MEDS: donepezil 5mg tablet PO SCH (20:16)
[2024-03-24] MEDS: carVEDilol 12.5mg tablet PO SCH (20:16)
[2024-03-25 01:30] VITALS: BP 188/93; PULSE 77; RESP 16; TEMP 98; O2SAT 95
[2024-03-25 02:50] VITALS: BP 164/66; PULSE 70
[2024-03-25 06:00] VITALS: BP 186/90; PULSE 86; RESP 16; TEMP 97.8; O2SAT 97
[2024-03-25 07:40] LABS: BASOPHILS % (AUTO) 0.2 % (0-1); EOSINOPHILS % (AUTO) 0.4 % (0-6); HEMATOCRIT 36.7 % (42.0-52.0); HEMOGLOBIN 12.6 g/dl (14.0-17.9); LYMPHOCYTES # (AUTO) 2.3 X10'3 (1.1-4.8); LYMPHOCYTES % (AUTO) 19.4 % (21-51); MEAN CORPUSCULAR HGB CONC 34.3 g/dL (33.0-36.5); MEAN CORPUSCULAR VOLUME 87.4 FL (78-98); MEAN PLATELET VOLUME 8.6 FL (7.4-10.4); MONOCYTES # (AUTO) 1.1 X10'3 (0-0.9); MONOCYTES % (AUTO) 8.9 % (2-12); NEUTROPHILS # (AUTO) 8.5 X10'3 (1.8-7.7); NEUTROPHILS % (AUTO) 71.1 % (42-75); PLATELET COUNT 173 X10'3 (140-440); RED BLOOD COUNT 4.19 X10'6 (4.70-6.10); RED CELL DISTRIBUTION WIDTH 14.9 % (11.5-14.5); WHITE BLOOD COUNT 11.9 X10'3 (4.5-11.0)
[2024-03-25] MEDS ORDERED: vitamin E 400 unit capsule PO SCH (08:00)
[2024-03-25] MEDS ORDERED: aspirin 81mg tab.chew PO SCH (08:00)
[2024-03-25] MEDS ORDERED: ascorbic acid 500mg tablet PO SCH (08:00)
[2024-03-25] MEDS ORDERED: HYDROchlorothiazide 12.5mg capsule PO SCH (08:00)
[2024-03-25] MEDS ORDERED: OMEGA-3/DHA/EPA/FISH OIL 1 EACH CAPSULE.DR PO SCH (08:00)
[2024-03-25] MEDS ORDERED: cholecalciferol (vitamin D3) 1,000 unit (25mcg) tablet PO SCH (08:00)
[2024-03-25] MEDS ORDERED: calcium carbonate/vitamin D3 tablet PO SCH (08:00)
[2024-03-25 08:03] LABS: ALANINE AMINOTRANSFERASE 8 U/L (12-78); ALBUMIN/GLOBULIN RATIO 1.3 (1.1-1.5); ALKALINE PHOSPHATASE 52 IU/L (46-116); ANION GAP 8 (8-16); ASPARTATE AMINO TRANSFERASE 10 U/L (10-37); BLOOD UREA NITROGEN 17 MG/DL (7-18); BUN/CREATININE RATIO 20.5 (10.0-20.0); CALCIUM 8.2 MG/DL (8.5-10.1); CHLORIDE 108 MMOL/L (99-107); CREATININE 0.83 MG/DL (0.60-1.10); GLUCOSE 139 MG/DL (70-104); MAGNESIUM 1.8 MG/DL (1.5-2.4); POTASSIUM 3.1 MMOL/L (3.5-5.1); PRO BRAIN NATRIURETIC PEPTIDE 2849 PG/ML (0-125); SODIUM 143 MMOL/L (135-145); TOTAL PROTEIN 5.4 G/DL (6.4-8.2); eCRCL 84 ML/MIN; eGFR > 90 ML/MIN
[2024-03-25] MEDS: aspirin 81mg tab.chew PO SCH (08:04)
[2024-03-25 08:05] VITALS: BP_SYST 186; PULSE 16
[2024-03-25] MEDS: losartan 50mg tablet PO SCH (08:05)
[2024-03-25] MEDS: NIFEdipine XL 30mg tablet PO SCH (08:06)
[2024-03-25] MEDS: ALPRAZolam 0.25mg tablet PO PRN (08:07)
[2024-03-25 08:55] VITALS: RESP 16; O2SAT 97
[2024-03-26] MEDS ORDERED: metFORMIN 500mg tablet PO SCH (08:00)
== END 2024-03-25 09:30 | disposition home or self-care (01) | DRG 267 ==
LOC: PAS IN 05:33 → PCU 3S 10:59
PROVIDERS: ADMIT Internal Medicine Cardiovascular Disease; ATTEND Internal Medicine Cardiovascular Disease
PROC: 03HY32Z Insertion of Monitoring Device into Upper Artery, Percutaneous Approach (ICD-10-PCS; 2024-03-24)
PROC: B41D1ZZ Fluoroscopy of Aorta and Bilateral Lower Extremity Arteries using Low Osmolar Contrast (ICD-10-PCS; 2024-03-24)
PROC: 02RF38Z Replacement of Aortic Valve with Zooplastic Tissue, Percutaneous Approach (ICD-10-PCS; principal; 2024-03-24 07:25)
DX: I35.0 Nonrheumatic aortic (valve) stenosis (principal); Z00.6 Encounter for examination for normal comparison and control in clinical research program; E11.9 Type 2 diabetes mellitus without complications; E78.5 Hyperlipidemia, unspecified; I10 Essential (primary) hypertension; Z95.1 Presence of aortocoronary bypass graft; Z95.0 Presence of cardiac pacemaker
CPT/HCPCS: 33361; 36415; 71045; 71046; 76937; 80053; 81003; 82948; 83036; 83735; 83880; 85025; 85347; 85610; 85730; 86885; 86900; 86901; 86920; 87081; 93005; 93308; A4615; A4618; A6258; A6449; C1756; C1760; C1769; C1894; G0378; J0360; J0690; J1644; J1815; J2250; J2371; J2704; J2720; J3010; J3370; J3490; J7030; J7040; J7050; J7120; Q9967

== ENCOUNTER 2024-07-13 10:15 | Emergency (ER) | payer MEDICARE, OTHER ==
[~2024-07-13] VITALS: Ht 177.8 cm; Wt 83.4 kg
[~2024-07-13 10:15] MED LIST changes: -AMA1T PO; +GLIM1TAB57 PO; -nitroPRUSSIDE (NIPRIDE) (200MCG/ML) 100ML Drip IV SCH; -ondansetron/PF 4mg/2ml inj IV PRN; -phenylephrine inj 50 MG in normal saline 250ml IV solN IV SCH
[2024-07-13 11:51] VITALS: BP 120/68; PULSE 78; RESP 16; TEMP 97.8; O2SAT 97
== END 2024-07-13 11:53 | disposition home or self-care (01) ==
LOC: ER 10:16
DX: S70.02XA Contusion of left hip, initial encounter (principal); M54.50 Low back pain, unspecified; I25.10 Atherosclerotic heart disease of native coronary artery without angina pectoris; E78.00 Pure hypercholesterolemia, unspecified; I10 Essential (primary) hypertension; I25.2 Old myocardial infarction; G89.29 Other chronic pain; G43.909 Migraine, unspecified, not intractable, without status migrainosus; Z79.899 Other long term (current) drug therapy; Z79.82 Long term (current) use of aspirin; Z79.84 Long term (current) use of oral hypoglycemic drugs; Z95.1 Presence of aortocoronary bypass graft; Z98.890 Other specified postprocedural states; X58.XXXA Exposure to other specified factors, initial encounter; Y93.89 Activity, other specified; Y92.89 Other specified places as the place of occurrence of the external cause; Y99.8 Other external cause status
CPT/HCPCS: 72100; 73502; 99284